=== PATIENT | female | born 1970 | race American Indian/Alaskan Native ===

== ENCOUNTER 2018-11-27 20:50 | Emergency (ER) | payer MEDICARE ==
--- NOTE | 2018-11-27 21:46 | Emergency Department Report ---
Blank Doc - Documentation Documentation: states she has been on her menstrual cycle for a month was having heavy bleeding has slowed down no N/V/D no abd pain does not make urine pt goes to dialysis on did not go to dialysis yesterday states she has generalized weakness PMHx HTN, CKD former smoker, quit 17 year ago occ drinker no drug use
[2018-11-27 22:10] LABS: Basophils % (Auto) 0.8 % (0.0-1.8); Eosinophils # (Auto) 0.5 K/mm3 (0.0-0.4); Eosinophils % (Auto) 9.1 % (0.0-4.3); Hematocrit 24.1 % (30.3-42.9); Hemoglobin 7.9 gm/dl (10.1-14.3); Lymphocytes # (Auto) 0.8 K/mm3 (1.2-5.4); Lymphocytes % (Auto) 14.6 % (13.4-35.0); Mean Corpuscular HGB Conc 33 % (30-34); Mean Corpuscular Volume 99 fl (79-97); Monocytes # (Auto) 0.4 K/mm3 (0.0-0.8); Monocytes % (Auto) 7.1 % (0.0-7.3); Platelet Count 159 K/mm3 (140-440); Red Blood Count 2.44 M/mm3 (3.65-5.03); Red Cell Distribution Width 14.8 % (13.2-15.2)
[2018-11-27 22:20] LABS: Calcium 10.6 mg/dL (8.4-10.2)
--- NOTE | 2018-11-28 00:08 | Ultrasound Report ---
PROCEDURE: US PELVIC transvaginal and transabdominal COMPLETE TECHNIQUE: Real-time transabdominal sonography in multiple planes of the pelvis was performed. The p elvic structures, especially the ovaries, were not optimally visualized. Transvaginal sonography was then performed to better evaluate the structures and/or abnormalities described below with image docu mentation. HISTORY: heavy bleeding x 1 month COMPARISONS: None . FINDINGS: UTERUS Size: 812.4 x 5.8 x 6.2 cm. Endometrial thickness: 7 mm. Orientation: anteverted. Cervix: Normal. Fibroids/masses: There are a few fibroids identified in the uterus. The largest in the posterior myom etrium measures 3 cm.. RIGHT Ovary: 3.5 x 2.8 x 1.9 cm. Appearance: There is a dominant cyst measuring 19 mm. LEFT Ovary: 2.9 x 3.8 x 1.7 cm. Appearance: Normal. Pelvic fluid: None. Other: None. IMPRESSION: The uterus is slightly enlarged. There are a few fibroids the largest measuring 3 cm. There is a dominant right ovary cyst cyst measures 19 mm. The left ovary has a normal appearance. This document is electronically signed by Holly Hernandes DO., Nov 28 2018 12:06:56 AM ET
--- NOTE | 2018-11-28 00:37 | Emergency Department Report ---
ED Female HPI - General Chief complaint: Vaginal Bleeding Stated complaint: BLEEDING X 1MONTH Time Seen by Provider: 11/27/18 21:43 Source: patient Mode of arrival: Ambulatory Limitations: No Limitations - History of Present Illness MD Complaint: vaginal bleeding -: month(s) (1) Radiation: suprapubic Severity: mild Severity scale (0 -10): 3 Quality: cramping Consistency: constant Improves with: none Worsens with: none Associated Symptoms: denies other symptoms. denies: nausea/vomiting, fever/chills, headaches, loss of appetite, dysuria, hematuria, rash, seizure, shortness of breath, syncope, weakness - Related Data Home Medications Medication Instructions Recorded Confirmed Last Taken Carvedilol [Coreg] 6.25 mg PO BID 08/18/13 08/18/13 Unknown Furosemide [Lasix] 40 mg PO DAILY 08/18/13 08/18/13 Unknown Previous Rx's Medication Instructions Recorded Last Taken Type Docusate Sodium [Colace] 100 mg PO BID #14 capsule 11/28/18 Unknown Rx Ferrous Sulfate [Ferrous Sulfate 324 mg PO TID 7 Days #21 tablet. 11/28/18 Unknown Rx 324 MG] Ibuprofen [Motrin 600 MG tab] 600 mg PO Q8H PRN #20 tablet 11/28/18 Unknown Rx medroxyPROGESTERone ACETATE 10 mg PO DAILY #7 tablet 11/28/18 Unknown Rx [Provera] Allergies Allergy/AdvReac Type Severity Reaction Status Date / Time No Known Allergies Allergy Verified 08/18/13 02:27 ED Review of Systems ROS: Stated complaint: BLEEDING X 1MONTH Other details as noted in HPI Comment: All other systems reviewed and negative ED Past Medical Hx - Past Medical History Previous Medical History?: Yes Hx Hypertension: Yes Hx Congestive Heart Failure: Yes Hx Renal Disease: Yes (CKD) Additional medical history: renal insufficiency, ESRD, Dialysis T,T,S, fibroids - Surgical History Past Surgical History?: Yes Additional Surgical History: L CW CVC - Social History Smoking Status: Former Smoker Substance Use Type: None - Medications Home Medications: Home Medications Medication Instructions Recorded Confirmed Last Taken Type Carvedilol [Coreg] 6.25 mg PO BID 08/18/13 08/18/13 Unknown History Furosemide [Lasix] 40 mg PO DAILY 08/18/13 08/18/13 Unknown History Docusate Sodium [Colace] 100 mg PO BID #14 capsule 11/28/18 Unknown Rx Ferrous Sulfate [Ferrous Sulfate 324 mg PO TID 7 Days #21 tablet. 11/28/18 Unknown Rx 324 MG] Ibuprofen [Motrin 600 MG tab] 600 mg PO Q8H PRN #20 tablet 11/28/18 Unknown Rx medroxyPROGESTERone ACETATE 10 mg PO DAILY #7 tablet 11/28/18 Unknown Rx [Provera] ED Physical Exam - General Limitations: No Limitations General appearance: alert, in no apparent distress - Head Head exam: Present: atraumatic, normocephalic - Eye Eye exam: Present: normal appearance, PERRL, EOMI - ENT ENT exam: Present: mucous membranes moist - Neck Neck exam: Present: normal inspection - Respiratory Respiratory exam: Present: normal lung sounds bilaterally. Absent: respiratory distress, wheezes, rales, rhonchi - Cardiovascular Cardiovascular Exam: Present: regular rate, normal rhythm. Absent: systolic murmur, diastolic murmur, rubs, gallop - GI/Abdominal GI/Abdominal exam: Present: soft, normal bowel sounds. Absent: distended, te nderness, guarding, rebound - Extremities Exam Extremities exam: Present: normal inspection - Back Exam Back exam: Present: normal inspection - Neurological Exam Neurological exam: Present: alert, oriented X3 - Psychiatric Psychiatric exam: Present: normal affect, normal mood - Skin Skin exam: Present: warm, dry, intact, normal color. Absent: rash ED Course Vital Signs 11/27/18 11/27/18 20:59 21:44 Temperature 98.3 F 98.3 F Pulse Rate 110 H 110 H Respiratory 18 18 Rate Blood Pressure 153/101 153/101 O2 Sat by Pulse 99 99 Oximetry ED Medical Decision Making - Lab Data Result diagrams: 11/27/18 21:52 11/27/18 21:52 - Medical Decision Making Patient is a 48 Female presenting with vaginal bleeding for possible one month. Patient does have a decreased hemoglobin however it is not dropped to the level that she needs an emergent transfusion. Patient started on iron therapy. Patient also referred to her category planner secondary to the fibroids that she has and the patient be started on Provera to see if this will slow her bleeding. Critical care attestation.: If time is entered above; I have spent that time in minutes in the direct care of this critically ill patient, excluding procedure time. 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
[2018-11-28 01:56] VITALS: BP 112/64
== END 2018-11-28 01:56 | disposition home or self-care (01) ==
LOC: ED 20:50
DX: D25.9 Leiomyoma of uterus, unspecified (principal); D50.0 Iron deficiency anemia secondary to blood loss (chronic); I13.2 Hypertensive heart and chronic kidney disease with heart failure and with stage 5 chronic kidney disease, or end stage renal disease; N18.6 End stage renal disease; I50.9 Heart failure, unspecified; Z99.2 Dependence on renal dialysis; Z87.891 Personal history of nicotine dependence; Z79.899 Other long term (current) drug therapy
CPT/HCPCS: 36415; 76830; 76856; 80048; 84702; 85025; 99283

== ENCOUNTER 2020-05-22 21:25 | Observation (INO) | payer MEDICARE ==
--- NOTE | 2020-05-22 23:00 | Event Note ---
ED Screening Note ED Screening Note: pt presents for constipation and abd pain for 5 days states she got a new permacath today for dialysis states she has not had dialysis since 05/16/2020 states she presents to the ED for dialysis bad cloth checker Dr. Baeza This initial assessment/diagnostic orders/clinical plan/treatment(s) is/are subject to change based on patients health status, clinical progression and re- assessment by fellow clinical providers in the ED. Further treatment and workup at subsequent clinical providers discretion. Patient/guardian urged not to elope from the ED as their condition may be serious if not clinically assessed and managed. Initial orders include: labs, XR
--- NOTE | 2020-05-22 23:43 | XRay Report ---
ABDOMEN 2 VIEW(S) INDICATION / CLINICAL INFORMATION: constipation. COMPARISON: None available. FINDINGS: TUBES / LINES: None. BOWEL GAS PATTERN/EXTRALUMINAL GAS: No significant abnormality. No pneumatosis or secondary signs of free air. ADDITIONAL FINDINGS: No significant additional findings. IMPRESSION: 1. No acute findings. Signer Name: Gonzales Weeks MD Signed: 05/22/2020 11:39 PM Workstation Name: [id number]
[2020-05-23 00:23] LABS: Basophils # (Auto) 0.1 K/mm3 (0.0-0.1); Basophils % (Auto) 1.3 % (0.0-1.8); Eosinophils # (Auto) 0.1 K/mm3 (0.0-0.4); Eosinophils % (Auto) 1.6 % (0.0-4.3); Hematocrit 31.4 % (30.3-42.9); Hemoglobin 10.2 gm/dl (10.1-14.3); Lymphocytes # (Auto) 0.7 K/mm3 (1.2-5.4); Lymphocytes % (Auto) 8.4 % (13.4-35.0); Mean Corpuscular HGB Conc 33 % (30-34); Mean Corpuscular Volume 97 fl (79-97); Monocytes # (Auto) 0.6 K/mm3 (0.0-0.8); Monocytes % (Auto) 7.6 % (0.0-7.3); Platelet Count 135 K/mm3 (140-440); Red Blood Count 3.25 M/mm3 (3.65-5.03); Red Cell Distribution Width 15.4 % (13.2-15.2)
[2020-05-23 01:05] LABS: Calcium 9.3 mg/dL (8.4-10.2)
[2020-05-23] MEDS ORDERED: SODIUM BICARB 8.4% 50 MEQ/50 ML SYRINGE IV ONE (01:22)
[2020-05-23] MEDS ORDERED: SODIUM POLYSTYRENE 15 GM/60 ML ORAL LIQD PO ONE (01:22)
[2020-05-23] MEDS ORDERED: ALBUTEROL 2.5 MG/3 ML NEBU IH ONE (01:22)
[2020-05-23] MEDS ORDERED: DEXTROSE 50% IN WATER (25GM) 50 ML SYRINGE IV ONE (01:22)
[2020-05-23] MEDS ORDERED: INSULIN REGULAR, HUMAN 100 UNIT/ML 3ML VIAL IV ONE (01:22)
--- NOTE | 2020-05-23 01:25 | Event Note ---
Date: 05/23/20 The patient was evaluated in the emergency department for symptoms described in the history of present illness. He/she was evaluated in the context of the global COVID-19 pandemic, which necessitated consideration that the patient might be at risk for infection with the virus that causes COVID-19. Institutional protocols and algorithms that pertain to the evaluation of patients at risk for COVID-19 are in a state of rapid change based on information released by regulatory bodies including the CDC and federal and state organizations. These policies and algorithms were followed during the patient's care in the emergency department. Please note that these policies, procedures and recommendations changed on a rapid basis. The triage nurse has informed me of the patient's hyperkalemia. The patient is still currently in the waiting room. I have reviewed the patient's vital signs, imaging studies, and laboratory studies. I have verbally instructed . Yobani Quinn Zoraida, triage nurse, to bring this patient back to the main emergency room emergently. I have also ordered hyperkalemia cocktail/interventions. Patient will require emergent placement of laboratory monitor, and EKG. Charge nurse, Scarlett Godfrey, also informed Vital Signs 05/22/20 22:58 Temperature 97.9 F Pulse Rate 94 H Respiratory 20 Rate Blood Pressure 149/103 O2 Sat by Pulse 99 Oximetry Lab Results 05/22/20 05/22/20 05/22/20 Range/Units 23:30 23:30 23:30 WBC 7.8 (4.5-11.0) K/mm3 RBC 3.25 L (3.65-5.03) M/mm3 Hgb 10.2 (10.1-14.3) gm/dl Hct 31.4 (30.3-42.9) % MCV 97 (79-97) fl MCH 32 (28-32) pg MCHC 33 (30-34) % RDW 15.4 H (13.2-15.2) % Plt Count 135 L (140-440) K/mm3 Lymph % (Auto) 8.4 L (13.4-35.0) % [place] % (Auto) 7.6 H (0.0-7.3) % Eos % (Auto) 1.6 (0.0-4.3) % Baso % (Auto) 1.3 (0.0-1.8) % Lymph # (Auto) 0.7 L (1.2-5.4) K/mm3 [place] # (Auto) 0.6 (0.0-0.8) K/mm3 Eos # (Auto) 0.1 (0.0-0.4) K/mm3 Baso # (Auto) 0.1 (0.0-0.1) K/mm3 Seg Neutrophils % 81.1 H (40.0-70.0) % Seg Neutrophils # 6.3 (1.8-7.7) K/mm3 Sodium 140 (137-145) mmol/L Potassium 6.6 H* (3.6-5.0) mmol/L Chloride 97.9 L (98-107) mmol/L Carbon Dioxide 12 L (22-30) mmol/L Anion Gap 37 mmol/L BUN 127 H (7-17) mg/dL Creatinine 27.6 H (0.6-1.2) mg/dL Estimated GFR 2 ml/min BUN/Creatinine Ratio 5 % Glucose 88 (65-100) mg/dL Calcium 9.3 (8.4-10.2) mg/dL Total Bilirubin 0.60 (0.1-1.2) mg/dL AST 78 H (5-40) units/L ALT 63 H (7-56) units/L Alkaline Phosphatase 127 (35-129) units/L Total Protein 7.2 (6.3-8.2) g/dL Albumin 4.0 (3.9-5) g/dL Albumin/Globulin Ratio 1.3 % HCG, Qual Negative (Negative)
[2020-05-23] MEDS ORDERED: CALCIUM GLUCONATE 1,000 MG in SODIUM CHLORIDE 0.9% 100 ML IV ONE (01:43)
--- NOTE | 2020-05-23 02:10 | Emergency Department Report ---
ED General Adult HPI - General Chief complaint: Medical Clearance Stated complaint: ABDOMINAL PAIN PUI?: No Time Seen by Provider: 05/22/20 22:59 Source: patient, RN notes reviewed, old records reviewed Mode of arrival: Ambulatory Limitations: No Limitations - History of Present Illness Initial comments: The patient was evaluated in the emergency department for symptoms described in the history of present illness. He/she was evaluated in the context of the global COVID-19 pandemic, which necessitated consideration that the patient might be at risk for infection with the virus that causes COVID-19. Institutional protocols and algorithms that pertain to the evaluation of patients at risk for COVID-19 are in a state of rapid change based on information released by regulatory bodies including the CDC and federal and stat e organizations. These policies and algorithms were followed during the patient's care in the emergency department. Please note that these policies, procedures and recommendations changed on a rapid basis. During the history and physical examination, I am chaperoned by nurse Meliza Haskins Nephrology: Dr. Mast Patient is a pleasant 49-year-old female who reports that she is not , with a history of end-stage renal disease on hemodialysis, typically gets dialysis Friday, , Friday, who was sent to the emergency room for her dialysis clinic for medical evaluation. Patient reports not having had dialysis for about a week. She reports that she has a right-sided thoracic Vas-Cath, and felt like previously, last week, her Vas-Cath was not working. Secondary to clerical issues with her outpatient dialysis clinic, she was not able to have the Vas-Cath changed in a timely fashion, until yesterday. She reports the cath was changed out, and "it feels much better at this time." She reports that she presented to her dialysis clinic, and was sent to the emergency room for evaluation. Denies headache, neck pain, chest pain. Positive shortness of breath. Positive abdominal cramping. Positive constipation. No urinary symptoms. No fever, no cough, no loss of taste or smell. She reports that she feels "pretty okay". Improves with: none Worsens with: none Associated Symptoms: denies other symptoms - Related Data Home Medications Medication Instructions Recorded Confirmed Last Taken Furosemide [Lasix] 40 mg PO DAILY 08/18/13 08/18/13 Unknown carvediloL [Coreg] 6.25 mg PO BID 08/18/13 08/18/13 Unknown Previous Rx's Medication Instructions Recorded Last Taken Type Docusate Sodium [Colace] 100 mg PO BID #14 capsule 11/28/18 Unknown Rx Ferrous Sulfate [Ferrous Sulfate 324 mg PO TID 7 Days #21 tablet. 11/28/18 Unknown Rx 324 MG] Ibuprofen [Motrin 600 MG tab] 600 mg PO Q8H PRN #20 tablet 11/28/18 Unknown Rx medroxyPROGESTERone ACETATE 10 mg PO DAILY #7 tablet 11/28/18 Unknown Rx [Provera] Allergies Allergy/AdvReac Type Severity Reaction Status Date / Time No Known Allergies Allergy Verified 08/18/13 02:27 ED Review of Systems ROS: Stated complaint: ABDOMINAL PAIN Other details as noted in HPI Constitutional: denies: fever Eyes: denies: eye discharge ENT: denies: congestion Respiratory: shortness of breath. denies: cough Cardiovascular: denies: chest pain Gastrointestinal: constipation Genitourinary: denies: dysuria Musculoskeletal: denies: back pain Neurological: denies: weakness Hematological/Lymphatic: denies: easy bleeding ED Past Medical Hx - Past Medical History Previous Medical History?: Yes Hx Hypertension: Yes Hx Congestive Heart Failure: Yes Hx Renal Disease: Yes (CKD) Additional medical history: renal insufficiency, ESRD, Dialysis T,T,S, fibroids - Surgical History Additional Surgical History: L CW CVC - Social History Smoking Status: Never Smoker Substance Use Type: None - Medications Home Medications: Home Medications Medication Instructions Recorded Confirmed Last Taken Type Furosemide [Lasix] 40 mg PO DAILY 08/18/13 08/18/13 Unknown History carvediloL [Coreg] 6.25 mg PO BID 08/18/13 08/18/13 Unknown History Docusate Sodium [Colace] 100 mg PO BID #14 capsule 11/28/18 Unknown Rx Ferrous Sulfate [Ferrous Sulfate 324 mg PO TID 7 Days #21 tablet. 11/28/18 Unknown Rx 324 MG] Ibuprofen [Motrin 600 MG tab] 600 mg PO Q8H PRN #20 tablet 11/28/18 Unknown Rx medroxyPROGESTERone ACETATE 10 mg PO DAILY #7 tablet 11/28/18 Unknown Rx [Provera] ED Physical Exam - General Limitations: No Limitations General appearance: alert, in no apparent distress - Head Head exam: Present: atraumatic, normocephalic - Eye Eye exam: Present: normal appearance, EOMI. Absent: nystagmus - ENT ENT exam: Present: normal exam, normal orophraynx, mucous membranes moist, normal external ear exam - Neck Neck exam: Present: normal inspection, full ROM. Absent: tenderness, meningismus - Respiratory Respiratory exam: Present: normal lung sounds bilaterally, other (Right-sided Vas-Cath noted, no redness, pus or streaking). Absent: respiratory distress, wheezes, rales, rhonchi, stridor, chest wall tenderness - Cardiovascular Cardiovascular Exam: Present: regular rate, normal rhythm, normal heart sounds. Absent: bradycardia, tachycardia, irregular rhythm, systolic murmur, diastolic murmur, rubs, gallop - GI/Abdominal GI/Abdominal exam: Present: soft. Absent: distended, tenderness, guarding, rebound, rigid, pulsatile mass - Extremities Exam Extremities exam: Present: normal inspection, full ROM, pedal edema, other (2+ pulses noted in the bilateral upper and lower extremities. There is no palpable cord. negative Homans sign. Muscular compartments are soft. The pelvis is stable.). Absent: calf tenderness - Back Exam Back exam: Present: normal inspection, full ROM. Absent: tenderness, CVA tenderness (R), CVA tenderness (L), paraspinal tenderness, vertebral tenderness - Neurological Exam Neurological exam: Present: alert, other (No facial droop. Tongue midline. Extraocular movements intact bilaterally. Facial sensation intact to light touch in V1, V2, V3 distribution bilaterally. 5 and a 5 strength in 4 extremities. Sensation intact to light touch in 4 extremities.) - Psychiatric Psychiatric exam: Present: normal affect, normal mood - Skin Skin exam: Present: warm, dry, intact, normal color. Absent: rash ED Course Vital Signs 05/22/20 05/23/20 22:58 03:02 Temperature 97.9 F Pulse Rate 94 H 91 H Respiratory 20 20 Rate Blood Pressure 149/103 Blood Pressure 162/99 [Right] O2 Sat by Pulse 99 Oximetry ED Medical Decision Making - Lab Data Result diagrams: 05/22/20 23:30 05/22/20 23:30 Vital Signs 05/22/20 05/23/20 22:58 03:02 Temperature 97.9 F Pulse Rate 94 H 91 H Respiratory 20 20 Rate Blood Pressure 149/103 Blood Pressure 162/99 [Right] O2 Sat by Pulse 99 Oximetry Lab Results 05/22/20 05/22/20 05/22/20 Range/Units 23:30 23:30 23:30 WBC 7.8 (4.5-11.0) K/mm3 RBC 3.25 L (3.65-5.03) M/mm3 Hgb 10.2 (10.1-14.3) gm/dl Hct 31.4 (30.3-42.9) % MCV 97 (79-97) fl MCH 32 (28-32) pg MCHC 33 (30-34) % RDW 15.4 H (13.2-15.2) % Plt Count 135 L (140-440) K/mm3 Lymph % (Auto) 8.4 L (13.4-35.0) % [place] % (Auto) 7.6 H (0.0-7.3) % Eos % (Auto) 1.6 (0.0-4.3) % Baso % (Auto) 1.3 (0.0-1.8) % Lymph # (Auto) 0.7 L (1.2-5.4) K/mm3 [place] # (Auto) 0.6 (0.0-0.8) K/mm3 Eos # (Auto) 0.1 (0.0-0.4) K/mm3 Baso # (Auto) 0.1 (0.0-0.1) K/mm3 Seg Neutrophils % 81.1 H (40.0-70.0) % Seg Neutrophils # 6.3 (1.8-7.7) K/mm3 Sodium 140 (137-145) mmol/L Potassium 6.6 H* (3.6-5.0) mmol/L Chloride 97.9 L (98-107) mmol/L Carbon Dioxide 12 L (22-30) mmol/L Anion Gap 37 mmol/L BUN 127 H (7-17) mg/dL Creatinine 27.6 H (0.6-1.2) mg/dL Estimated GFR 2 ml/min BUN/Creatinine Ratio 5 % Glucose 88 (65-100) mg/dL Calcium 9.3 (8.4-10.2) mg/dL Total Bilirubin 0.60 (0.1-1.2) mg/dL AST 78 H (5-40) units/L ALT 63 H (7-56) units/L Alkaline Phosphatase 127 (35-129) units/L Total Protein 7.2 (6.3-8.2) g/dL Albumin 4.0 (3.9-5) g/dL Albumin/Globulin Ratio 1.3 % HCG, Qual Negative (Negative) - EKG Data 05/23/20 03:57 Sinus rhythm, 90 bpm, normal axis, QTC 496 ms, poor R wave progression, and motion artifact. Abnormal EKG, the EKG is not a STEMI. - Radiology Data Radiology results: report reviewed, image reviewed ABDOMEN 2 VIEW(S) INDICATION / CLINICAL INFORMATION: constipation. COMPARISON: None available. FINDINGS: TUBES / LINES: None. BOWEL GAS PATTERN/EXTRALUMINAL GAS: No significant abnormality. No pneumatosis or secondary signs of free air. ADDITIONAL FINDINGS: No significant additional findings. IMPRESSION: 1. No acute findings. Signer Name: Gonzales Weesk MD Signed: 05/22/2020 10:39 PM Workstation Name: to be - Medical Decision Making Differential diagnosis, including but not limited to: Hyperkalemia, azotemia, uremia, medical clearance, constipation Assessment and plan: 49-year-old female, who was afebrile, with reassuring vital signs, who does not appear to be in any significant distress at this time, with clear lung sounds, saturating at 99, 100% on room air, sent to the emergency room by hemodialysis, secondary to not having outpatient hemodialysis, secondary to poorly functioning Vas-Cath. X-ray of the abdomen was ordered prior to my personal evaluation. Patient has no abdominal tenderness, rebound or guarding or peritoneal signs. Do not appreciate indication for advanced abdominal imaging at this time. Patient very clinically well-appearing. However, found to have hyperkalemia, metabolic acidosis, azotemia and uremia, all of which require emergent/urgent hemodialysis. Patient will be medicated with hyperkalemia cocktail. Contacted nephrology on-call, Dr. Rodas. Discussed patient's history, physical, pertinent laboratory studies. He agrees with plan of care he will arrange for urgent hemodialysis. Hospital physician, Dr. Ienssa Cage to admit History of constipation nonemergent read, reviewed and appreciated. Can be followed up as an outpatient once medically optimized for her acute metabolic issues. Critical Care Time: Yes Critical care time in (mins) excluding proc time.: 35 Critical care attestation.: If time is entered above; I have spent that time in minutes in the direct care of this critically ill patient, excluding procedure time. ED Disposition Clinical Impression: Hyperkalemia, ESRD (end stage renal disease), Azotemia, Uremia, Constipation, Metabolic acidosis Disposition: OP ADMIT IP TO THIS HOSP Is pt being admited?: Yes Condition: Good Referrals: JYOTHI DENTON MD [Primary Care Provider] - 3-5 Days
[2020-05-23] MEDS ORDERED: INSULIN REGULAR, HUMAN 100 UNITS/1 ML ONE (02:49)
[2020-05-23] MEDS ORDERED: ONDANSETRON 4 MG/2 ML INJ IV PRN (04:06)
[2020-05-23] MEDS ORDERED: MORPHINE 2 MG/1 ML INJ IV PRN (04:06)
[2020-05-23] MEDS ORDERED: MAGNESIUM HYDROXIDE (MOM) ORAL LIQD UDC PO PRN (04:06)
[2020-05-23] MEDS ORDERED: ACETAMINOPHEN 325 MG TAB PO PRN (04:06)
--- NOTE | 2020-05-23 04:14 | History and Physical Report ---
History of Present Illness Date of examination: 05/23/20 Date of admission: 05/23/2020 Chief complaint: Malfunctioning dialysis catheter ESRD needing dialysis History of present illness: 49-year-old female with known history of end-stage renal disease on dialysis on Tuesdays, and Friday presents to the emergency room from the dialysis clinic for further medical evaluation. Patient has had the malfunctioning Vas-Cath and therefore has not had dialysis for about a week. She also indicates that vas catheter was no change until yesterday. However whe n she presented to the dialysis clinic she was referred to the emergency room for evaluation prior to dialysis. Patient denies any chest pain or shortness of breath, no headache or dizziness, no fever or chills, no nausea vomiting, no hematuria or dysuria, denies any sick contacts and no recent travel, denies any contact with anyone with COVID-19. Evaluation in the emergency room today reveals a potassium of 6.6. EKG was however unremarkable. [employer] Operator on-call has been consulted and notified by the ER physician. Past History Past Medical History: dialysis, ESRD, heart failure, hypertension Past Surgical History: Other (H/O Fibroid) Social history: no significant social history Family history: no significant family history Medications and Allergies Allergies Allergy/AdvReac Type Severity Reaction Status Date / Time No Known Allergies Allergy Verified 08/18/13 02:27 Home Medications Medication Instructions Recorded Confirmed Last Taken Type Furosemide [Lasix] 40 mg PO DAILY 08/18/13 08/18/13 Unknown History carvediloL [Coreg] 6.25 mg PO BID 08/18/13 08/18/13 Unknown History Docusate Sodium [Colace] 100 mg PO BID #14 capsule 11/28/18 Unknown Rx Ferrous Sulfate [Ferrous Sulfate 324 mg PO TID 7 Days #21 tablet. 11/28/18 Unknown Rx 324 MG] Ibuprofen [Motrin 600 MG tab] 600 mg PO Q8H PRN #20 tablet 11/28/18 Unknown Rx medroxyPROGESTERone ACETATE 10 mg PO DAILY #7 tablet 11/28/18 Unknown Rx [Provera] Active Meds: Active Medications Acetaminophen (Tylenol) 650 mg PO Q4H PRN PRN Reason: Pain MILD(1-3)/Fever >100.5/MELO Heparin Sodium (Porcine) (Heparin) 5,000 unit SUB-Q Q8HR JAR[facility] Magnesium Hydroxide (Milk Of Magnesia) 30 ml PO Q4H PRN PRN Reason: Constipation Morphine Sulfate (Morphine) 2 mg IV Q4H PRN PRN Reason: Pain, Moderate (4-6) Ondansetron HCl (Zofran) 4 mg IV Q8H PRN PRN Reason: Nausea And Vomiting Sodium Chloride (Sodium Chloride Flush Syringe 10 Ml) 10 ml IV BID JAROD Sodium Chloride (Sodium Chloride Flush Syringe 10 Ml) 10 ml IV PRN PRN PRN Reason: LINE FLUSH Review of Systems Constitutional: no fever, no chills, no weakness Ears, nose, mouth and throat: no nasal congestion, no sore throat Cardiovascular: no chest pain, no palpitations Respiratory: no cough, no shortness of breath Gastrointestinal: no abdominal pain, no nausea, no vomiting, no diarrhea Genitourinary Female: no flank pain, no dysuria, no hematuria Musculoskeletal: no neck pain, no low back pain Integumentary: no rash, no pruritis Neurological: no headaches, no confusion Psychiatric: no anxiety, no depression Exam - Constitutional Vitals: Temp Pulse Resp BP Pulse Ox 97.9 F 91 H 20 162/99 99 05/22/20 22:58 05/23/20 03:02 05/23/20 03:02 05/23/20 03:02 05/22/20 22:58 General appearance: Present: no acute distress, well-nourished - EENT Eyes: Present: PERRL, EOM intact. Absent: scleral icterus ENT: hearing intact, clear oral mucosa, dentition normal - Neck Neck: Present: supple, normal ROM - Respiratory Respiratory effort: normal Respiratory: bilateral: CTA - Cardiovascular Rhythm: regular Heart Sounds: Present: S1 & S2, systolic murmur (Soft). Absent: gallop, diastolic murmur, rub - Extremities Extremities: no ischemia, pulses intact, pulses symmetrical, No edema, Full ROM Peripheral Pulses: within normal limits - Abdominal General gastrointestinal: Present: soft, non-tender, non-distended. Absent: mass - Integumentary Integumentary: Present: clear, warm, dry. Absent: rash - Musculoskeletal Musculoskeletal: strength equal bilaterally - Psychiatric Psychiatric: appropriate mood/affect, intact judgment & insight, memory intact, cooperative - Neurologic Neurologic: CNII-XII intact, no focal deficits, moves all extremities - Additional findings Additional findings: Skin: Vas cath. on right anterior chest wall. Results - Labs CBC & Chem 7: 05/22/20 23:30 05/22/20 23:30 Labs: Abnormal lab results 05/22/20 05/22/20 Range/Units 23:30 23:30 RBC 3.25 L (3.65-5.03) M/mm3 RDW 15.4 H (13.2-15.2) % Plt Count 135 L (140-440) K/mm3 Lymph % (Auto) 8.4 L (13.4-35.0) % [place] % (Auto) 7.6 H (0.0-7.3) % Lymph # (Auto) 0.7 L (1.2-5.4) K/mm3 Seg Neutrophils % 81.1 H (40.0-70.0) % Potassium 6.6 H* (3.6-5.0) mmol/L Chloride 97.9 L (98-107) mmol/L Carbon Dioxide 12 L (22-30) mmol/L BUN 127 H (7-17) mg/dL Creatinine 27.6 H (0.6-1.2) mg/dL AST 78 H (5-40) units/L ALT 63 H (7-56) units/L Assessment and Plan - Patient Problems (1) ESRD (end stage renal disease) Current Visit: Yes Status: Acute Plan to address problem: Patient has missed dialysis for 1 week due to malfunctioning Vas-Cath. Tag Press Operator has been consulted for dialysis. (2) Hyperkalemia Current Visit: Yes Status: Acute Plan to address problem: Possibly secondary to the end-stage renal disease. Patient has received calcium gluconate, sodium bicarbonate, Kayexalate, insulin and glucose in the emergency room. Will monitor potassium level. (3) Metabolic acidosis Current Visit: Yes Status: Acute Plan to address problem: Due to the end-stage renal disease. Will monitor chemistry. (4) DVT prophylaxis Current Visit: Yes Status: Acute Plan to address problem: Patient placed on subcutaneous heparin. (5) Full code status Current Visit: Yes Status: Acute
[2020-05-23] MEDS ORDERED: HEPARIN 5,000 UNIT/1 ML VIAL ONE (06:43)
[2020-05-23] MEDS: HEPARIN 5,000 UNIT/1 ML VIAL SUB-Q SCH ×2 (06:45→17:06)
[2020-05-23] MEDS ORDERED: EPOETIN ALFA 10,000 UNIT/1 ML INJ IV PRN (08:50)
[2020-05-23] MEDS ORDERED: SODIUM CHLORIDE 0.9% 100 ML IV PRN (08:50)
--- NOTE | 2020-05-23 08:55 | Consultation ---
History of Present Illness - Reason for Consult Consult date: 05/23/20 end stage renal disease, hyperkalemia Requesting physician: JAMES SAINZ - History of Present Illness 49-year-old female with known history of end-stage renal disease on dialysis on Tuesdays, and Friday presents to the emergency room from the dialysis clinic for further medical evaluation. Patient has had the malfunctioning Vas-Cath and therefore has not had dialysis for about a week. She also indicates that vas catheter was no change until yesterday. However when she presented to the dialysis clinic she was referred to the emergency room for evaluation prior to dialysis. Patient denies any chest pain or shortness of breath, no headache or dizziness, no fever or chills, no nausea vomiting, no hematuria or dysuria, denies any sick contacts and no recent travel, denies any contact with anyone with COVID-19. Evaluation in the emergency room today reveals a potassium of 6.6. EKG was however unremarkable. Past History Past Medical History: dialysis, ESRD, heart failure, hypertension Past Surgical History: Other (H/O Fibroid) Social history: no significant social history Family history: no significant family history Review of Systems Constitutional: no fever, no chills, no weakness Ears, nose, mouth and throat: no nasal congestion, no sore throat Cardiovascular: no chest pain, no palpitations Respiratory: no cough, no shortness of breath Gastrointestinal: no abdominal pain, no nausea, no vomiting, no diarrhea Genitourinary Female: no flank pain, no dysuria, no hematuria Musculoskeletal: no neck pain, no low back pain Integumentary: no rash, no pruritis Neurological: no headaches, no confusion Psychiatric: no anxiety, no depression Past History Past Medical History: dialysis, ESRD, heart failure, hypertension Past Surgical History: Other (H/O Fibroid) Social history: no significant social history Family history: no significant family history Medications and Allergies Allergies Allergy/AdvReac Type Severity Reaction Status Date / Time No Known Allergies Allergy Verified 08/18/13 02:27 Home Medications Medication Instructions Recorded Confirmed Last Taken Type Furosemide [Lasix] 40 mg PO DAILY 08/18/13 08/18/13 Unknown History carvediloL [Coreg] 6.25 mg PO BID 08/18/13 08/18/13 Unknown History Docusate Sodium [Colace] 100 mg PO BID #14 capsule 05/25/19 Unknown Rx Ferrous Sulfate [Ferrous Sulfate 324 mg PO TID 7 Days #21 tablet. 11/28/18 Unknown Rx 324 MG] Ibuprofen [Motrin 600 MG tab] 600 mg PO Q8H PRN #20 tablet 11/28/18 Unknown Rx medroxyPROGESTERone ACETATE 10 mg PO DAILY #7 tablet 11/28/18 Unknown Rx [Provera] Active Meds: Active Medications Acetaminophen (Tylenol) 650 mg PO Q4H PRN PRN Reason: Pain MILD(1-3)/Fever >100.5/MELO Carvedilol (Coreg) 6.25 mg PO BID JAROD Docusate Sodium (Colace) 100 mg PO BID JAROD Epoetin [place] (Procrit) 10,000 unit IV DELMY PRN PRN Reason: hemodialysis Ferrous Sulfate (Feosol) 325 mg PO TID [facility] Heparin Sodium (Porcine) (Heparin) 5,000 unit SUB-Q Q8HR [facility] Last Admin: 05/23/20 06:45 Dose: Not Given Documented by: Sodium Chloride (Nacl 0.9%) 100 mls @ 999 mls/hr IV DELMY PRN PRN Reason: Hypotension Magnesium Hydroxide (Milk Of Magnesia) 30 ml PO Q4H PRN PRN Reason: Constipation Medroxyprogesterone Acetate (Provera) 10 mg PO QDAY [facility] Morphine Sulfate (Morphine) 2 mg IV Q4H PRN PRN Reason: Pain, Moderate (4-6) Ondansetron HCl (Zofran) 4 mg IV Q8H PRN PRN Reason: Nausea And Vomiting Sodium Chloride (Sodium Chloride Flush Syringe 10 Ml) 10 ml IV BID [facility] Sodium Chloride (Sodium Chloride Flush Syringe 10 Ml) 10 ml IV PRN PRN PRN Reason: LINE FLUSH Exam - Vital Signs Vital signs: Vital Signs Temp Pulse Resp BP Pulse Ox 97.9 F 94 H 20 149/103 99 05/22/20 22:58 05/22/20 22:58 05/22/20 22:58 05/22/20 22:58 05/22/20 22:58 - Physical Exam Narrative exam: General appearance: Present: no acute distress, well-nourished - EENT Eyes: Present: PERRL, EOM intact. Absent: scleral icterus ENT: hearing intact, clear oral mucosa, dentition normal - Neck Neck: Present: supple, normal ROM - Respiratory Respiratory effort: normal Respiratory: bilateral: CTA - Cardiovascular Rhythm: regular Heart Sounds: Present: S1 & S2, systolic murmur (Soft). Absent: gallop, diastolic murmur, rub - Extremities Extremities: no ischemia, pulses intact, pulses symmetrical, No edema, Full ROM Peripheral Pulses: within normal limits - Abdominal General gastrointestinal: Present: soft, non-tender, non-distended. Absent: mass - Integumentary Integumentary: Present: clear, warm, dry. Absent: rash - Musculoskeletal Musculoskeletal: strength equal bilaterally - Psychiatric Psychiatric: appropriate mood/affect, intact judgment & insight, memory intact, cooperative - Neurologic Neurologic: CNII-XII intact, no focal deficits, moves all extremities - Additional findings Additional findings: Skin: Vas cath. on right anterior chest wall. Results - Lab Results 05/22/20 23:30 05/22/20 23:30 Most recent lab results Calcium 9.3 mg/dL (8.4-10.2) 05/22/20 23:30 Assessment and Plan Impression: * ESRD * Uremia * Hyperkalemia * HTN Plan: * hd today and prn * uf as tolerated * strict i/os * renal diet * ok to dc after hd from renal standpoint
[2020-05-23] MEDS ORDERED: DOCUSATE SODIUM 100 MG CAP PO SCH (10:00)
[2020-05-23] MEDS ORDERED: NON-FORMULARY EACH (Medroxyprogesterone Acetate [Provera] 10 MG) PO SCH (10:00)
[2020-05-23] MEDS ORDERED: medroxyPROGESTERone ACETATE 5 MG TAB PO SCH (10:00)
[2020-05-23] MEDS ORDERED: carvediloL 6.25 MG TAB PO SCH (10:00)
[2020-05-23] MEDS ORDERED: DOCUSATE SODIUM 100 MG CAP ONE (10:26)
[2020-05-23] MEDS ORDERED: carvediloL 6.25 MG TAB ONE (10:27)
[2020-05-23 12:23] LABS: Hepatitis B Surface Antigen Non-Reactive (Negative); Hepatitis C Virus Antibody Non-Reactive (NonReactive)
--- NOTE | 2020-05-23 12:29 | Discharge Summary ---
Providers - Providers Date of Admission: 05/23/20 04:01 Date of discharge: 05/23/20 Attending physician: DINORAH MERINO 05/23/20 02:10 Consult to Physician [CONS] Urgent Comment: Consulting Provider: TARUN CHINO Physician Instructions: Reason For Exam: esrd Primary care physician: JYOTHI DENTON Hospitalization Condition: Good Hospital course: Discharge diagnosis: (1) ESRD (end stage renal disease) Current Visit: Yes Status: Acute Plan to address problem: Patient has missed dialysis for 1 week due to malfunctioning Vas-Cath. [employer] Specialist has been consulted for dialysis. (2) Hyperkalemia Current Visit: Yes Status: Acute Plan to address problem: Possibly secondary to the end-stage renal disease. Patient has received calcium gluconate, sodium bicarbonate, Kayexalate, insulin and glucose in the emergency room then followed by HD (3) Metabolic acidosis Current Visit: Yes Status: Acute Plan to address problem: Due to the end-stage renal disease. (4) HTN Current Visit: Yes Status: chronic Plan to address problem: Patient to continue home meds Disposition: DC-01 TO HOME OR SELFCARE Time spent for discharge: 34 minutes Core Measure Documentation - Palliative Care Palliative Care/ Comfort Measures: Not Applicable - Core Measures Any of the following diagnoses?: history only Exam - Constitutional Vitals: Temp Pulse Resp BP Pulse Ox 97.7 F 89 20 127/87 98 05/23/20 07:46 05/23/20 07:46 05/23/20 07:46 05/23/20 07:46 05/23/20 07:46 Plan Activity: advance as tolerated Weight Bearing Status: Weight Bear as Tolerated Diet: renal Special Instructions: restrict fluid intake to (1.2l daily) Follow up with: JYOTHI DENTON MD [Primary Care Provider] - 3-5 Days
[2020-05-23] MEDS ORDERED: FERROUS SULFATE 325 MG TAB PO SCH (14:00)
[2020-05-23] MEDS ORDERED: NON-FORMULARY EACH (Ferrous Sulfate [Ferrous Sulfate 324 Mg] 324 MG) PO SCH (14:00)
[2020-05-23 17:48] VITALS: BP 147/83
[2020-05-23 18:01] LABS: Calcium 9.2 mg/dL (8.4-10.2)
== END 2020-05-23 18:55 | disposition home or self-care (01) ==
LOC: ED 21:25 → 3A 05-23 04:01
PROVIDERS: ADMIT Internal Medicine Geriatric Medicine; ATTEND Internal Medicine
DX: T82.41XA Breakdown (mechanical) of vascular dialysis catheter, initial encounter (principal); I13.2 Hypertensive heart and chronic kidney disease with heart failure and with stage 5 chronic kidney disease, or end stage renal disease; I50.9 Heart failure, unspecified; N18.6 End stage renal disease; E87.2 Acidosis; E87.5 Hyperkalemia; K59.00 Constipation, unspecified; D25.9 Leiomyoma of uterus, unspecified; R79.89 Other specified abnormal findings of blood chemistry; Z99.2 Dependence on renal dialysis; Z79.899 Other long term (current) drug therapy
CPT/HCPCS: 36415; 74019; 80048; 80053; 80074; 82962; 84703; 85025; 93005; 96374; 96375; 99291; G0257; G0378; J0610; J0885; J1644; J1815